=== PATIENT | male | born 1965 | race Two or more races ===

== ENCOUNTER 2018-02-24 14:54 | Emergency (ER) | payer OTHER ==
[2018-02-24] MEDS ORDERED: Aspirin 81 mg CHEW TAB* 81 MG TAB.CHEW PO ONE (15:07)
--- NOTE | 2018-02-24 15:23 | ED ---
HPI Chest Pain - HPI Summary HPI Summary: 52-year-old male with extensive past cardiac history presents with diffuse chest discomfort since 12:30 PM. He states that he's had some shortness of breath with this and describes it as a pressure. He also has had some discomfort around his right scapula for 5 days after returning on a plane flight from [place]. 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 He has also had a mitral valve repair. At present he feels a generalized fatigue and a mild chill. He denies any cough, fever or URI symptoms. He has no blood pressure, diabetes or dyslipidemia. - History of Current Complaint Chief Complaint: EDChestPainROMI Time Seen by Provider: 02/24/18 15:08 Hx Obtained From: Patient Pain Intensity: 0 - Allergy/Home Medications Allergies/Adverse Reactions: Allergies Allergy/AdvReac Type Severity Reaction Status Date / Time contrast dye Allergy Hives Uncoded 02/24/18 14:59 Home Medications: Home Medications Warfarin TAB(*) [Coumadin TAB(*)] 6 mg PO DAILY 02/24/18 [History Confirmed 06/09] PMH/Surg Hx/FS Hx/Imm Hx Previously Healthy: No - history of congenital heart disease Cardiovascular History: Reports: Hx Congenital Heart Disease, Hx Valvular Heart Disease Denies: Hx Atrial Fibrillation, Hx Pacemaker/ICD Sensory History: Denies: Hx Hearing Aid Psychiatric History: Denies: Hx Panic Disorder - Surgical History Surgery Procedure, Year, and Place: OPEN HEART SURGERY 1979 FOR AORTIC STENOSIS -NO IMPANTS IN HEART; also open heart surgury 2013 . Buffy-x schuler valve placement and also aortic stent placement per pt. Infectious Disease History: No Infectious Disease History: Denies: Traveled Outside the [place] in Last 30 Days - Social History Occupation: Employed Full-time Smoking Status (MU): Never Smoked Tobacco Review of Systems Positive: Chills. Negative: Fever Eyes: Negative ENT: Negative Positive: Chest Pain. Negative: Palpitations Positive: Shortness Of Breath. Negative: Cough Negative: Abdominal Pain, Vomiting, Nausea Genitourinary: Negative Musculoskeletal: Negative Skin: Negative All Other Systems Reviewed And Are Negative: Yes Physical Exam Triage Information Reviewed: Yes Vital Signs On Initial Exam: Initial Vitals Temp Pulse Resp BP Pulse Ox 97.6 F 68 18 113/68 99 02/24/18 14:57 02/24/18 14:57 02/24/18 14:57 02/24/18 14:57 02/24/18 14:57 Vital Signs Reviewed: Yes Appearance: Positive: Well-Appearing, No Pain Distress, Well-Nourished Skin: Positive: Warm, Skin Color Reflects Adequate Perfusion, Other - Sternotomy scar Eyes: Positive: Normal, EOMI ENT: Positive: Normal ENT inspection, Pharynx normal Neck: Positive: Supple, Nontender Respiratory/Lung Sounds: Positive: Clear to Auscultation, Breath Sounds Present Cardiovascular: Positive: RRR - Prominent/mechanical aortic, mitral heart sounds. Negative: Leg Edema Left, Leg Edema Right Abdomen Description: Positive: Nontender, No Organomegaly, Soft Musculoskeletal: Positive: Normal, Strength/ROM Intact Neurological: Positive: Normal, Sensory/Motor Intact, Alert, Oriented to Person Place, Time, CN Intact II-III Psychiatric: Positive: Normal Diagnostics - Vital Signs Vital Signs Temp Pulse Resp BP Pulse Ox 02/24/18 14:57 97.6 F 68 18 113/68 99 - Laboratory Result Diagrams: 02/24/18 15:18 02/24/18 15:18 Lab Statement: Any lab studies that have been ordered have been reviewed, and results considered in the medical decision making process. - EKG EKG #1 Cardiac Rate: NL - 65 EKG Rhythm: Sinus Rhythm ST Segment: Non-Specific - slight elevation III, flip T in avL Ectopy: None EKG Comparison: Other - not currently available Re-Evaluation - Re-Evaluation First Eval Re-Evaluation Time: 16:00 Change: Improved Chest Pain Course/Dx - Course Course Of Treatment: Nurses note reviewed. Patient with history congenital valvular disease status post replacement of his aortic valve and repair of his mitral valve. Bioprosthetic valve with goal of INR 1.5-2.0. INR is in the therapeutic range. His heart rate is around 60 and his O2 sat 100%. Blood pressures are good. Subtle EKG findings on the first EKG when he had some discomfort but repeated thereafter and is back to baseline. His troponin level never elevated 3. He was visited by the hospitalist Dr. Beavers who cleared for discharge. He will follow up closely with his primary pamphlet distributor at [place]. - Chest Pain Differential Diagnosis/HQI/PQRI: Acute NE, ACS, Angina, CHF, Chest Wall, GI Disease, Lower Respiratory Infection, Pulmonary Embolism - Diagnoses Provider Diagnoses: Chest pain - Critical Care Time Critical Care Time: 30-74 min - Critical care time is exclusive of separately billable procedures. It includes multiple re-evaluations, review of old records. Discharge - Sign-Out/Discharge Documenting (check all that apply): Patient Departure - Discharge Plan Condition: Improved Disposition: HOME Patient Education Materials: Chest Pain (ED) Referrals: Dav Conroy MD [Medical Doctor] - Liliana Ackerman MD [Primary Care Provider] - Additional Instructions: Take a baby aspirin daily. Continue your warfarin. Return with recurring chest pain, pain in the legs, difficulty breathing, worse, new symptoms or other concerns. While on your airplane flight stay well-hydrated. Get up to walk every half hour to one hour. Do exercises with her lower legs. Call your pamphlet distributor to follow-up as soon as possible. - Billing Disposition and Condition Condition: IMPROVED Disposition: Home
[2018-02-24 15:27] LABS: ABS Basophils 0.1 10^3/ul (0-0.2); ABS Eosinophils 0.3 10^3/ul (0-0.6); ABS Lymphocytes 2.1 10^3/ul (1.0-4.8); ABS Monocytes 0.6 10^3/ul (0-0.8); ABS Neutrophils 6.1 10^3/ul (1.5-7.7); ABS Nucleated RBC 0 10^3/ul; Eosinophil % 3.5 %; Hematocrit 44 % (42-52); Hemoglobin 14.6 g/dl (14.0-18.0); Lymphocyte % 22.8 %; Mean Corpuscular HGB Conc 33 g/dl (31-36); Mean Corpuscular Hemoglobin 28 pg (27-31); Mean Corpuscular Volume 83 fL (80-94); Mean Platelet Volume 8.4 fL (7.4-10.4); Nucleated Red Blood Cells % 0; Platelet Count 229 10^3/ul (150-450); Red Cell Distribution Width 14 % (10.5-15); White Blood Count 9.2 10^3/ul (3.5-10.8)
[2018-02-24 15:34] LABS: INR 1.65 (0.77-1.02)
[2018-02-24 15:43] LABS: Albumin 4.4 g/dL (3.2-5.2); Albumin/Globulin Ratio 1.5 (1-3); Calcium 9.4 mg/dL (8.6-10.3); EGFR Non-African American 90.5 (>60); Globulin 2.9 g/dL (2-4); Total Bilirubin 0.4 mg/dL (0.2-1.0); Total Protein 7.3 g/dL (6.4-8.9)
[2018-02-24 18:56] VITALS: BP 114/77
--- NOTE | 2018-02-25 01:06 | CONS ---
CC: Dr. Liliana Ackerman MEDICAL CONSULTATION NOTE: DATE OF CONSULTATION: 02/24/18 HISTORY OF PRESENT ILLNESS: This 52-year-old man presented to the emergency room because of chest pain. He was in his usual state of health until lunch time. He was at work, he was eating alone. While he was eating, he developed a pressure- like sensation in the middle of his chest. There was no radiation. No diaphoresis. No nausea or vomiting. No palpitations or lightheadedness. He got up and walked around, but he said the pain lasted about 3 minutes. He subsequently talked to his and decided to come to the emergency room. He had never had such pain before. He does say he has been under more stress at work lately. He has a pedometer and walks 5000 to 7000 steps per day, sometimes he walks somewhat vigorously and says he never gets short of breath or chest pain while walking. PAST MEDICAL AND SURGICAL HISTORY: The patient has congenital heart disease. In 2013, he had aortic valve replacement at [facility]. He said there was a carbon covered metal implant and his target INR is 1.5 to 2. In 2016, he had mitral valve repair at [facility]. He has had no other hospitalizations. He denied any history of tuberculosis, pneumonia, liver or kidney disease, or diabetes. CURRENT MEDICATIONS: Warfarin. FAMILY HISTORY: Father and grandfather had coronary artery disease but not at a premature age. 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 He lives with his who is his surrogate decision maker. He has 2 children. He has never smoked. He does not abuse alcohol. REVIEW OF SYSTEMS: A 14-point review of systems was unremarkable. PHYSICAL EXAMINATION: Vital Signs: Temperature 97.3, blood pressure 114/77, heart rate 60, respirations 12, O2 saturation on room air 98%. Height 5 feet 5 inches, weight 166 pounds. General: The patient is alert and partly up on the emergency room stretcher. His affect was appropriate and he seemed quite comfortable. HEENT was unremarkable. There was no sign of head trauma. Head was normocephalic. Eyes were conjugate. Sclerae were clear. Mouth and pharynx were clear. Neck was supple. There was no JVD, adenopathy, or thyromegaly. There was a median sternotomy scar. There was a very loud prosthetic sharp click and a mild systolic murmur. Lungs are clear to auscultation and percussion. Extremities were unremarkable. There was no joint swelling. There is no calf tenderness. There is no pedal edema. The skin was warm, dry, and intact. There were no significant skin lesions. IMPRESSION AND PLAN: The patient's history would be more compatible with esophageal spasm or simply a reaction to the stress, which he is perceived to have that is not really suggestive of coronary artery disease. The patient did have cardiac catheterization during his 2 open heart procedures in 2013 and 2015 , and the impression was that there was no coronary blockage at those times. His two ECG's today did not show any significant changes from older ECG's. The patient will have another troponin level before discharge. If this is normal, I think he can resume normal activities. He was advised to call Dr. Ackerman on Tuesday to discuss the possibility of an outpatient stress test, although I do not think this is an urgent matter at all. I do note that his INR was in his therapeutic range namely 1.65. [id number]/[facility] #: [id number] [facility]OSPITALCarlos A
== END 2018-02-24 18:56 | disposition home or self-care (01) ==
LOC: ED 14:54
DX: R07.9 Chest pain, unspecified (principal); Z95.2 Presence of prosthetic heart valve; Z79.01 Long term (current) use of anticoagulants
CPT/HCPCS: 36415; 71045; 80053; 83605; 83880; 84484; 85025; 85610; 93005; 99284; A9270-GY

== ENCOUNTER 2018-06-12 14:45 | Emergency (ER) | payer OTHER | END 2018-06-12 14:54 | disposition left against medical advice (07) | LOC: UCEAST 14:45 | DX: M25.50 Pain in unspecified joint (principal); Z53.21 Procedure and treatment not carried out due to patient leaving prior to being seen by health care provider ==